=== PATIENT | male | born 1950 | race Caucasian/White ===

== ENCOUNTER → 2016-11-21 | Outpatient (CLI) | payer MEDICARE ==
[~2016-11-21] MED LIST: ALEVE220 M1 PO; AMITRYPTYLINE PO; ASPIRIN81 M2 PO; DIAZEPAM PO; DOXY 100100 MG IV; EFFEXOR-XR75 MG PO; FENTANYL1 PATCH .1 TD; FLEXERIL10 M1 PO; FLOMAX0.4 M1 PO; NIACIN500 M2 PO; PERCOCET 10/3251 TAB PO; PRILOSEC20 MG PO; RIFAMPIN300 MG PO; SIMVASTATIN40 MG PO; VANCOMYCIN IV
--- NOTE | ~2016-11-21 | CT57 ---
STS. [facility] A Service of [facility] & [facility] / [facility] RADIOLOGY TEXT RESULTS PATIENT: NADIRA RAINEY LOCATION: [facility] : 52 UNIT #: [id number] AGE: [address]: Sabino aLi MD SEX: M ORDER DR: [id number] [address] [id number] O MR#: [id number] Acc #: [id number] NAME: NADIRA RAINEY : 1950 SEX: M STUDY DATE/TIME: 11/21/2016 8:32 UNIT: [facility] ROOM: STUDY DESCRIPTION: CT Chest Wo Cont Attending Physician: Sabino Lia M.D. Referring Physician: Sabino Lai M.D. Ordering Physician: Sabino Lai M.D. Primary Care Physician: Sabino Lai M.D. MEDICAL IMAGING REPORT This report is preliminary unless electronic signature is present. EXAM CT chest without contrast. HISTORY 66-year-old male right shoulder pain. Recent chest x-ray suggested possible infiltrate or effusion. Complains of right arm swelling after a fall several months ago. TECHNIQUE Axial images performed through the chest without contrast. Multiplanar reconstructed images reviewed at a workstation. This CT exam was performed with one or more of the following radiation dose reduction techniques: automatic exposure control, adjustment of mA and/or kV according to patient size, and iterative reconstruction. FINDINGS The examination demonstrates a moderate right-sided pleural effusion free layering along the posterior aspect of the right thorax measuring over 5 cm in depth. There is compressive atelectasis right lung base. The underlying infiltrate not excluded. The left lung remains clear. There is a trace amount of left pleural fluid as well as a small amount of pericardial fluid. Coronary artery calcifications noted. Small amount of mediastinal adenopathy. Upper abdomen remarkable for pneumobilia. Osseous structures and thoracic inlet unremarkable. The patient has undergone a right shoulder arthroplasty. Mild generalized subcutaneous edema around the thorax. Suspected gynecomastia. IMPRESSION 1. Moderate right pleural effusion and a small left pleural effusion with compressive atelectasis and/or infiltrate right lung base. Atelectasis favored. 2. Small pericardial effusion. 3. Pneumobilia not unexpected in this patient post cholecystectomy. [facility] A Service of [facility] & [facility] / [facility] RADIOLOGY TEXT RESULTS PATIENT: NADIRA RAINEY LOCATION: [facility] : 52 UNIT #: [id number] AGE: [address]: Sabino Lai MD SEX: M ORDER DR: Probable fatty liver. Dictated by... Leanne Thompson M.D. THIS IS AN ELECTRONICALLY VERIFIED REPORT Leanne Thompson M.D. at 11/22/2016 7:28 AM Piedad TD: 11/21/2016 16:50 JOB #: [id number] MEDICAL IMAGING REPORT Page 1 of 1
== END | disposition home or self-care (01) ==
LOC: SCT 08:12
DX: R91.8 Other nonspecific abnormal finding of lung field (principal); R60.0 Localized edema; J90 Pleural effusion, not elsewhere classified; I31.3 Pericardial effusion (noninflammatory); Z90.49 Acquired absence of other specified parts of digestive tract
CPT/HCPCS: 71250

== ENCOUNTER → 2016-11-23 | Outpatient (CLI) | payer MEDICARE ==
--- NOTE | ~2016-11-23 | US140 ---
[facility] A Service [facility] RADIOLOGY TEXT RESULTS PATIENT: NADIRA RAINEY LOCATION: [facility] : 52 UNIT #: [id number] AGE: [address]: Sabino Lai MD SEX: M ORDER DR: [id number] [place] [id number] O MR#: [id number] Acc #: [id number] NAME: NADIRA RAINEY : 1950 SEX: M STUDY DATE/TIME: 11/23/2016 9:26 UNIT: [facility] ROOM: STUDY DESCRIPTION: UE Veins Unilat or Ltd Stdy Attending Physician: Sabino Lai M.D. Referring Physician: Sabino Lai M.D. Ordering Physician: Sabino Lai M.D. Primary Care Physician: Sabino Lai M.D. MEDICAL IMAGING REPORT This report is preliminary unless electronic signature is present. EXAM Right upper extremity venous Doppler. INDICATIONS Right upper extremity swelling for 2-3 weeks. TECHNIQUE Pradhan-scale, color Doppler and spectral Doppler waveform analysis was performed the right upper extremity. FINDINGS Venous ultrasound examination of the right upper extremity was performed using grayscale, spectral Doppler and color flow Doppler imaging. FINDINGS The examination is negative. There is no evidence of deep venous thrombus within the right internal jugular vein, subclavian vein, axillary vein or brachial veins. No superficial venous thrombus is seen within the cephalic or basilic veins. IMPRESSION Negative examination. No evidence of right upper extremity venous thrombosis. Dictated by... Elizabeth Franklin M.D. THIS IS AN ELECTRONICALLY VERIFIED REPORT Elizabeth Franklin M.D. at 11/25/2016 1:07 PM AFF/jt [facility] A [facility] RADIOLOGY TEXT RESULTS PATIENT: NADIRA RAINEY LOCATION: [facility] : 52 UNIT #: [id number] AGE: [address]: Sabino Lai MD SEX: M ORDER DR: TD: 11/24/2016 16:30 JOB #: [id number] MEDICAL IMAGING REPORT Page 1 of 1
== END | disposition home or self-care (01) ==
LOC: CNIV 09:00 → SNIV 09:11 → CNIV 09:30 → SNIV 09:30
DX: R60.0 Localized edema (principal)
CPT/HCPCS: 93971

== ENCOUNTER → 2016-12-07 | Outpatient (CLI) | payer MEDICARE ==
[2016-12-07 14:05] LABS: BUN/CREATININE RATIO 8.46; CALCIUM SERUM 8.6 mg/dL (8.4-10.2); CREATININE SERUM 1.3 mg/dL (0.6-1.4); GLOM FILT RATE Estimated 57.3 mL/min (>60); POTASSIUM 4.7 mmol/L (3.5-5.1)
== END | disposition home or self-care (01) ==
LOC: CLAB 13:20
PROVIDERS: Internal Medicine Cardiovascular Disease
DX: R60.9 Edema, unspecified (principal)
CPT/HCPCS: 36415; 80048